=== PATIENT | female | born 1950 | race African-American/Black ===

== ENCOUNTER 2024-08-11 09:25 | Emergency (ER) | payer OTHER ==
[~2024-08-11] VITALS: Ht 152.4 cm; Wt 70.0 kg
[2024-08-11 09:34] VITALS: BP 132/81; TEMP 99.1
[2024-08-11] MEDS ORDERED: PREDNISONE 20MG TABLET PO STA (10:18)
[2024-08-11 10:47] VITALS: PULSE 87; RESP 18; O2SAT 98
[2024-08-11] MEDS: ALBUTEROL (0.083%) 2.5MG/3ML NEB HHN STA (10:55)
[2024-08-11] MEDS: IPRATROPIUM BROMIDE (0.02%) 0.5MG/2.5ML NEB HHN STA (10:56)
[2024-08-11] MEDS ORDERED: ALBU18HF2 IH (11:36)
[2024-08-11] MEDS ORDERED: P50 MT (11:36)
[2024-08-11] MEDS: PREDNISONE 20MG TABLET PO NR (12:11)
== END 2024-08-11 12:37 | disposition home or self-care (01) ==
LOC: ER 09:25
DX: J06.9 Acute upper respiratory infection, unspecified (principal); J45.901 Unspecified asthma with (acute) exacerbation; B97.89 Other viral agents as the cause of diseases classified elsewhere; E11.9 Type 2 diabetes mellitus without complications; E78.00 Pure hypercholesterolemia, unspecified; I10 Essential (primary) hypertension; Z90.49 Acquired absence of other specified parts of digestive tract; Z90.710 Acquired absence of both cervix and uterus; Z96.659 Presence of unspecified artificial knee joint; Z88.5 Allergy status to narcotic agent; Z98.890 Other specified postprocedural states; Z20.822 Contact with and (suspected) exposure to COVID-19
CPT/HCPCS: 87804 ×2; 71046; 94640; 99284; 87426; J7512; Z7610 ×3

== ENCOUNTER 2025-06-25 08:19 | Emergency (ER) | payer OTHER ==
[~2025-06-25] VITALS: Ht 152.4 cm; Wt 61.0 kg
[~2025-06-25 08:19] MED LIST: ALBU18HF2 IH; P50 MT
[2025-06-25 08:21] VITALS: O2SAT 100
[2025-06-25 08:31] VITALS: BP 129/85; PULSE 101; RESP 16; TEMP 37.1; O2SAT 98
[2025-06-25] MEDS ORDERED: CETI10CA2 MT (08:57)
[2025-06-25] MEDS: LORATADINE 10MG TABLET PO SCH (09:10)
== END 2025-06-25 09:14 | disposition home or self-care (01) ==
LOC: ER 08:19
DX: R21 Rash and other nonspecific skin eruption (principal); E11.9 Type 2 diabetes mellitus without complications; E78.00 Pure hypercholesterolemia, unspecified; I10 Essential (primary) hypertension; J45.909 Unspecified asthma, uncomplicated; Z88.5 Allergy status to narcotic agent; Z90.49 Acquired absence of other specified parts of digestive tract; Z90.710 Acquired absence of both cervix and uterus
CPT/HCPCS: 99282